=== PATIENT | female | born 1975 | race Two or more races ===

== ENCOUNTER 2017-04-11 11:09 | Emergency (ER) | payer MEDICAID ==
[~2017-04-11] VITALS: Ht 162.6 cm; Wt 65.8 kg
[2017-04-11 11:15] VITALS: BP 141/66
[2017-04-11] MEDS ORDERED: LORazepam 0.5mg tab ORAL ONE (12:00)
[2017-04-11 12:04] LABS: BASOPHILS % (AUTO) 0.7 % (0.0-2.0); EOSINOPHILS % (AUTO) 1.2 % (0.0-3.0); LYMPHOCYTES % (AUTO) 29.2 % (20.0-45.0); MEAN CORPUSCULAR HEMOGLOBIN 30.6 PG (27.0-31.0); MEAN CORPUSCULAR HGB CONC 33.5 G/DL (32.0-36.0); MEAN CORPUSCULAR VOLUME 91 FL (80-99); MEAN PLATELET VOLUME 7.9 FL (6.5-10.1); MONOCYTES % (AUTO) 4.8 % (1.0-10.0); NEUTROPHILS % (AUTO) 64.1 % (45.0-75.0); PLATELET COUNT 366 K/UL (150-450); RED BLOOD COUNT 4.95 M/UL (4.20-5.40); RED CELL DISTRIBUTION WIDTH 10.8 % (11.6-14.8); WHITE BLOOD COUNT 12.3 K/UL (4.8-10.8)
[2017-04-11 12:21] LABS: ACETAMINOPHEN < 10 ug/mL (10-30); ALANINE AMINOTRANSFERASE 16 U/L (3-33); ALBUMIN/GLOBULIN RATIO 1.8 (1.0-2.7); ALCOHOL < 10 mg/dL; ASPARTATE AMINO TRANSFERASE 20 U/L (5-40); CALCIUM 9.5 mg/dL (8.6-10.2); CARBON DIOXIDE 18 mEQ/L (20-30); CHLORIDE 99 mEQ/L (98-107); CREATININE 0.7 mg/dL (0.5-0.9); GLOMERULAR FILTRATION RATE > 60 mL/min (>60); HEMOLYSIS 8; SODIUM 139 mEQ/L (135-145); TOTAL PROTEIN 7.8 g/dL (6.6-8.7)
[2017-04-11 12:31] LABS: THYROID STIMULATING HORMONE 0.959 uIU/mL (0.300-4.500)
[2017-04-11 12:36] LABS: ANION GAP 22 (5-15)
[2017-04-11 12:42] LABS: POTASSIUM 2.7 mEQ/L (3.4-4.9)
[2017-04-11] MEDS ORDERED: POTASSIUM CHLO20 ME1 ORAL (13:34)
[2017-04-11 14:10] VITALS: BP 112/73
--- NOTE | 2017-04-15 14:22 | Emergency Room Report ---
History of Present Illness General Chief Complaint: General Complaint Source: Patient, EMS Present Illness HPI Patient is a 41-year-old female brought in by EMS after increased generalized weakness. Patient had reportedly been having some diffuse weakness. Patient had been noted to be selectively nonverbal by EMS. The patient had gradual onset of symptoms. She denied any fever or vomiting or diarrhea. Patient reports having some alcohol use. Allergies: Coded Allergies: UNABLE TO ASSESS (Unverified , 04/11/17) Patient History Reviewed Nursing Documentation: PMH: Agreed, PSxH: Agreed Nursing Documentation-PMH Past Medical History Deferred: Pt Cognitively Impaired Review of Systems All Other Systems: limited - Review of systems: Review systems is limited by patient's being a poor historian and poorly cooperative Physical Exam Vital Signs Date Time Temp Pulse Resp B/P Pulse Ox O2 Delivery O2 Flow Rate FiO2 04/11/17 10:52 98.2 124 20 128/70 98 Room Air Sp02 EP Interpretation: reviewed, normal General Appearance: normal inspection, well appearing, no apparent distress, alert, GCS 15, non-toxic Head: atraumatic ENT: normal ENT inspection, hearing grossly normal, normal voice Neck: normal inspection, full range of motion, supple, no bony tend Respiratory: normal inspection, lungs clear, normal breath sounds, no respiratory distress, no retraction, no wheezing Cardiovascular #1: regular rate, rhythm, no edema Gastrointestinal: normal inspection, normal bowel sounds, non tender, soft, no guarding, no hernia Genitourinary: no CVA tenderness Musculoskeletal: normal inspection, back normal, normal range of motion Neurologic: normal inspection, alert, responsive, speech normal Psychiatric: normal inspection, judgement/insight normal, mood/affect normal Skin: normal inspection, normal color, no rash Medical Decision Making Diagnostic Impression: Primary Impression: Hypokalemia ER Course Patient presented for generalized weakness. Differential diagnosis included was not limited to anemia, urinary tract infection, electrolyte abnormality, hypothyroidism, myocardial infarction, myasthenia gravis, dehydration, among others. Because of complexity of patient's case laboratory testing and imaging studies were ordered. The patient was noted to be hypokalemic. She was given oral potassium. Patient was advised to followup with her primary care physician for reexamination. Patient had improvement in her mental status and was able to ambulate without assistance the time of discharge. Thyroid studies were normal.The patient is advised to follow up with primary care doctor in 1-2 days. Patient is advised to return if any worsening condition or if any changes in status that are concerning. EKG Diagnostic Results Rate: normal Rhythm: NSR ST Segments: no acute changes Last Vital Signs Date Time Temp Pulse Resp B/P Pulse Ox O2 Delivery O2 Flow Rate FiO2 04/11/17 14:10 85 18 112/73 98 Room Air 04/11/17 11:15 99.1 Status: improved Disposition: HOME, SELF-CARE Condition: Stable Scripts Potassium Chloride* (K-DUR*) 20 Meq Tab.er.prt 20 MEQ ORAL DAILY, #7 TAB 0 Refills Prov: Kwaku Mckeon 04/11/17 Patient Instructions: Hypokalemia Kwaku Mckeon Apr 15, 2017 14:22
== END 2017-04-11 14:10 | disposition home or self-care (01) ==
LOC: EDBD 11:09 → EMR 12:09
DX: E87.6 Hypokalemia (principal)
CPT/HCPCS: 36415; 80053; 80300; 80329; 84443; 85025; 99282; J8499